=== PATIENT | female | born 1985 | race Caucasian/White ===

== ENCOUNTER 2019-11-03 10:00 | Emergency (ER) | payer SELFPAY ==
[2019-11-03] MEDS ORDERED: Ketorolac 60 MG/2 ML SDV IM ONE (10:18)
--- NOTE | 2019-11-03 11:27 | CT ---
Head CT Technique: Multiple axial sections were obtained through the brain. Intravenous contrast was not utilized. Comparison: No prior intracranial imaging is available. Findings: Mild soft tissue hematoma is seen within the posterior left scalp. Ventricles along with basal cisterns and sulci over the convexities appear within normal limits for the patient's age. No abnormal parenchymal densities are seen. No evidence of intracranial hemorrhage. No midline shift or mass effect is seen. Mastoid sinuses are clear. Moderate mucosal thickening is seen within the left maxillary sinus. Other visualized paranasal sinuses are clear. No air-fluid levels are seen within the paranasal sinuses. Impression: 1. Soft tissue swelling within the left posterior scalp. 2. Sinus disease within the left maxillary sinus which is most likely chronic. 3. No acute intracranial abnormality is identified. Diagnostic code #2 This report was dictated in [place] Standard Time
--- NOTE | 2019-11-03 11:47 | CR ---
Chest and left ribs: Frontal view of the chest was obtained as well as 4 views showing the left ribs. Comparison: No prior chest or rib study is available. Heart size and mediastinum are normal. Lungs are clear. No discrete fracture or other bony abnormality is appreciated. Impression: 1. Nothing acute is seen on frontal chest x-ray. 2. No discrete left-sided rib abnormality is appreciated. Diagnostic code #1 This report was dictated in [place] Standard Time
--- NOTE | 2019-11-03 11:47 | CR ---
Left shoulder: 3 views of the left shoulder were obtained. Comparison: No prior left shoulder exam. Minimal joint space narrowing is noted within the acromioclavicular joint with slight superior spurring within the distal clavicle at the acromioclavicular joint. Glenohumeral joint is normal. No fracture or other bony abnormality is seen. Impression: 1. Minimal degenerative change within the acromioclavicular joint. 2. Left shoulder study is otherwise unremarkable. Diagnostic code #2 This report was dictated in [place] Standard Time
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
== END 2019-11-03 13:12 | disposition home or self-care (01) ==
LOC: MW.ED 10:00
DX: S00.03XA Contusion of scalp, initial encounter (principal); M25.512 Pain in left shoulder; Z91.040 Latex allergy status; V48.5XXA Car driver injured in noncollision transport accident in traffic accident, initial encounter; Y92.410 Unspecified street and highway as the place of occurrence of the external cause
CPT/HCPCS: 70450; 71101; 73030; 80305; 81025; 96372; 99284; J1885